=== PATIENT | male | born 1965 | race Caucasian/White ===

== ENCOUNTER 2024-03-13 23:37 | Emergency (ER) | payer OTHER, SELFPAY ==
[2024-03-13 23:45] VITALS: BP 182/110; PULSE 73; RESP 18; TEMP 36.4; O2SAT 97; BMI 33.0
--- NOTE | 2024-03-14 00:23 | ED_ITS ---
HPI - General Adult General Chief complaint: Jaw Injury/Pain Stated complaint: tooth pain Time Seen by Provider: 03/14/24 00:04 Source: patient Mode of arrival: ambulatory Limitations: no limitations History of Present Illness HPI narrative: Very reasonable 59-year-old male comes to the emergency department with persistent dental pain. He had been having intermittent symptoms for the past few weeks after undergoing a root canal procedure last year. Pain is become much more bothersome over the past 2 days. He saw his dentist yesterday. The dentist thinks there is a complication with the previous root canal and started him on amoxicillin and referred him to the oral surgeon. He has a pending appointment Sunday for the oral surgeon. He was instructed that he could call Sunday morning and see about getting on a cancellation list for that day, they were hoping to work him in. He has been using Tylenol 1000 mg every 6 hours and also ibuprofen 800 mg every 6 hours to try to help with his pain. It is causing a mild amount of stomach upset but during the day it is enough to manage. At 9:00 p.m., he had called the oral surgeon office and was given instructions to call about a work-in appointment in the morning and some Tylenol with codeine was called to the nearest 24 hour pharmacy. Unfortunately, he had already maxed out the Tylenol and the dentist did not have great advice for him on when he could take the Tylenol with codeine based on this. He would not be eligible to take any until 2:00 a.m. based on his last Tylenol usage. He is unable to sleep, did not know what else to do. There is no fever. He can open and close his jaw normally. There is no difficulty swallowing. He does not have any drainage from the gum or tooth area. No new injury. No neck pain or stiffness, no breathing difficulty. Did not try any bcbf-isp-enedmyo sleep aids to help augment his pain control tonight. No intoxication. Past medical history benign, only home med is 5 mg of Lexapro. Reports that he has been told he has a penicillin allergy but has tolerated amoxicillin and also what sounds like Augmentin for a sinus infection last year. Nonsmoker. ROS notable for the HEENT symptoms as above only. Otherwise he denies other generalized, HEENT, respiratory or skin changes Related Data Allergies Allergy/AdvReac Type Severity Reaction Status Date / Time No Known Drug Allergies Allergy Verified 03/13/24 23:51 Exam Const: Vital Signs, click to edit/add: Vital Signs - 24 hr 03/13/24 23:45 Temperature 97.6 F Pulse Rate [Left P ulse Oximeter] 73 Respiratory Rate 18 Blood Pressure [Ri ght Upper Arm] 182/110 H Pulse Oximetry 97 Oxygen Delivery Me thod Room Air Documenting provider has reviewed patient's vital signs: yes Common normals: no apparent distress General appearance: cooperative, comfortable and well kempt Other: Very reasonable, polite and cooperative. HENMT: Common normals: normocephalic, head/scalp atraumatic, moist oral mucous membranes, oropharynx normal and dentition normal Head and scalp: normocephalic and atraumatic Eye: Common normals: conjunctivae normal General eye: normal appearance of both eyes Conjunctiva: conjunctiva(e) normal Neck & C-Spine: Common normals: full ROM and no lymphadenopathy Resp: Common normals: normal respiratory effort Effort & inspection: able to speak in complete sentences Psych: Common normals: speech normal Appearance: well kempt Attitude: engaged Activity/motor behavior: appropriate eye contact Speech: normal speech Insight: insight good Judgement: judgment good Skin: Common normals: no rashes or lesions noted General skin exam: no rashes or lesions noted Course Course ED Course: Counseled patient that we are typically not encouraged to treat dental pain and give narcotics. In his case, he has done an excellent job of using all of his ceyc-etx-ufraplr resources, securing a dental appointment as soon as possible, securing subspecialty follow-up and making appropriate calls to the specialist when he had on med needs. I will reward this good behavior with an exception to our policy. He will continue taking the amoxicillin, no change in antibiotic is warranted at this time. He is counseled on continued Tylenol dosage. Encouraged to reduce the ibuprofen though to 800 mg every 8 hours or 600 mg every 6 hours. He is given a very small supply of 10 oxycodone tablets and instructed on proper use of these. Save them for nighttime. He will not be given any additional refills of narcotic medications if he comes back to the emergency department. Alarm symptoms were reviewed. Written instructions were also provided. He was also counseled on use of dceh-bix-ueakqna Benadryl and melatonin to water filterer helper sleep was instructed to go pick these up at the local 24 hour graft restore prior to go going home from the ED. His will drive him. When he gets home, he will take 10 of melatonin, 25 of Benadryl and 1 of the oxycodone tablets. If ineffective at 1:00 a.m., he may take a 2nd oxycodone. If he runs out of oxycodone and or needs something petal cutter for daytime, he is welcome to try the Tylenol with codeine but needs to remember appropriate math on Tylenol dosing which was discussed with him. He verbalizes understanding and agreement Vital Signs Vital signs: Initial Vital Signs Temperature 97.6 F 03/13/24 23:45 Temperature Source Temporal Artery Scan 03/13/24 23:45 Pulse Rate 73 03/13/24 23:45 Pulse Rhythm Regular 03/13/24 23:45 Respiratory Rate 18 03/13/24 23:45 Blood Pressure 182/110 H 03/13/24 23:45 Blood Pressure Mean 134 H 03/13/24 23:45 Blood Pressure Position Sitting 03/13/24 23:45 Pulse Oximetry 97 03/13/24 23:45 Oxygen Delivery Method Room Air 03/13/24 23:45 Vital Signs Temperature 97.6 F 03/13/24 23:45 Pulse Rate 73 03/13/24 23:45 Respiratory Rate 18 03/13/24 23:45 Blood Pressure 182/110 H 03/13/24 23:45 Pulse Oximetry 97 03/13/24 23:45 Oxygen Delivery Method Room Air 03/13/24 23:45 Temperature 97.6 F 03/13/24 23:45 Pulse Rate 73 03/13/24 23:45 Respiratory Rate 18 03/13/24 23:45 Blood Pressure 182/110 H 03/13/24 23:45 Pulse Oximetry 97 03/13/24 23:45 Oxygen Delivery Method Room Air 03/13/24 23:45 Discharge Plan Discharge Clinical Impression: Pain, dental Patient Disposition: Home w/ Parent or Adult Condition: Stable Instructions: Toothache (ED) Additional Instructions: Discussed, there does not seem to be any large infection spread into the bone, c ellulitis or other emergent condition at this time. You are doing an excellent job navigating getting this tooth problem better investigated. Here dentist was right, the total Tylenol dosing may be problematic on your current regimen. See below: For primary pain control, I want you taking 1000 mg of Tylenol every 6 hours. Take this whether your pain is bothersome or not to keep things at [place]. If the pain is still bothersome, take ibuprofen 600 mg every 6 hours. The 100 mg every 6 hours was too much in will cause more stomach issues and can potentially cause kidney problems. Try to take your ibuprofen with a little bit of food, even a couple of crackers makes a huge difference. I have given you a very small supply of oxycodone. This is a much stronger pain medication. As we discussed, we are actually not supposed to give narcotic pain medications for dental pain in the emergency department for a multitude of reasons. But in your case, you have properly initiated contact with your dentist, specialist and are doing a great job of using appropriate ozwg-tjc-beunqji medications. I willing to make an exception in your case but please understand that we cannot give additional refills if you run out of this medication. You may take the oxycodone 1-2 tablets up to every 6 hours. My hope is that you will not need this during the day but can rather save for nighttime. Remember that you should be max and out your Tylenol and ibuprofen before taking the oxycodone. For sleep, you may use 1-2 tablets of 25 mg Benadryl and or melatonin 10 mg. Please go to [email or web address] right after leaving the emergency department and pickle solution maker the melatonin and some Benadryl. Take the melatonin, 1 Benadryl and 1 of the oxycodone as soon as you get home. Give this 1 hour and if your pain has not improved sufficiently to allow you to sleep, you may take a 2nd oxycodone. Unfortunately, if this does not give you adequate pain relief to sleep you will have a restless night. Keep your plan to continue the amoxicillin and call the or facial surgeon at 7:00 a.m. as you are planning. If you do elect to take the Tylenol with codeine that was prescribed by the dental team, you will need to calculate that in your total daily dosing of Tylenol. Max of 4000 mg per 24 hours of Tylenol containing products. The oxycodone does not contain Tylenol. Activity Level: No Restrictions Discharge Diet: Regular Stand Alone Forms: [facility] Info Instructions
--- OUTSIDE RECORDS SUMMARY | 2024-03-14 00:31 | XMS_ITS | Clinical Summary ---
Author Name Unknown Organization [facility] Address [place], [place] [address] Care Team Providers Care Assembler Flexible Leads Name Role Phone Pcp, No Primary Care Provider Unavailabl e Allergies No known active allergies Medications Medication Sig Dispensed Refills Start Date End Date Status sildenafiL, pulm.hypertension, (REVATIO) 20 mg tabletIndications:E rectile dysfunction of organic origin Take 1 tablet by mouth once daily if needed for Other (Specify). 30 tablet. 11 12/30/2020 Active escitalopram oxalate (LEXAPRO) 20 mg tabletIndications:A nxiety Take 0.5-1 Tablets (10-20 mg) by mouth once daily. 90 Tablet 3 12/21/2022 Active doxycycline monohydrate (MONODOX) 100 mg capsuleIndications: Acute non-recurrent maxillary sinusitis Take 1 Capsule (100 mg) by mouth two times daily. 14 Capsule 01/24/2024 Active sodium chloride (OCEAN) 0.65 % nasal solutionIndications :Epistaxis Inhale 1 Crucible into affected nostril(s) every hour if needed for Nasal Dryness or Nasal Congestion. 45 mL 01/24/2024 Active amoxicillin-clavula jaime 875-125 mg tablet (AUGMENTIN)Indicati ons:Acute non-recurrent maxillary sinusitis Take 1 Tablet by mouth two times daily with meals for 7 days. 14 Tablet 02/08/2024 02/15/2024 Active Problems Problem Noted Date Diagnosed Date Severe obstructive sleep apnea 05/28/2023 Overview: Setting: Auto 04/09 Supplied by: Holly PSG done: 04-19-23 HST [place] RDI/ASPEN 48 Lowest O2 Sat: 66% Prediabetes 12/25/2022 Dyslipidemia 12/25/2022 Generalized anxiety disorder 12/29/2020 Male erectile disorder 12/29/2020 Encounters Date Type Department Care Team Description 02/08/2024 3:20 PM CDT Telemedicine [facility] [address] [place] [phone] Ina Hernandez MD Sinus Problem 01/24/2024 6:15 PM CRYPTOGRAPHIC TECHNICIAN Office Visit [facility] [place] [address] [place] [address] Brian Ferro NP Person Under Investigation (PUI) 01/24/2024 Travel from Last 3 Months Immunizations Name Administration Dates Next Due Tdap 08/18/2020 Social History Tobacco Use Types Packs/Day Years Used Date Smoking Tobacco: Former Smokeless Tobacco: Never Alcohol Use Standard Drinks/Week Comments Not Currently 0 (1 standard drink = 0.6 oz pur e alcohol) PHQ-2 Answer Date Recorded PHQ-2 TOTAL SCORE 0 03/09/2022 Social Connections Answer Date Recorded Frequency of Communication with Friends and Fami ly Not on file 01/24/2022 Financial Resource Strain Answer Date R ecorded Difficulty of Paying Living Expenses Not on file 01/24/2022 Difficulty of Paying Living Expenses Not on file 01/24/2022 Sex and Gender Information Value Date Recorded Sex Assigned at Not on file Gender Identity Not on file Sexual Orientation Not on file Obstetrics History Last Filed Vital Signs Vital Sign Reading Time Taken Comments Blood Pressure 152/72 01/24/2024 6:51 PM CRYPTOGRAPHIC TECHNICIAN Pulse 102 01/24/2024 6:36 PM CRYPTOGRAPHIC TECHNICIAN Temperature 38.3 ??C (100.9 ??F) 01/24/2024 6:[address] Respiratory Rate 22 01/24/2024 6:36 PM CRYPTOGRAPHIC TECHNICIAN Oxygen Saturation 94% 01/24/2024 6:36 PM CRYPTOGRAPHIC TECHNICIAN Inhaled Oxygen Concentration - - Weight 105.7 kg (233 lb) 01/24/2024 6:36 PM CRYPTOGRAPHIC TECHNICIAN Height 177 cm (5' 9.69) 12/21/2022 9:33 AM CRYPTOGRAPHIC TECHNICIAN Body Mass Index 33.73 12/21/2022 9:33 AM CRYPTOGRAPHIC TECHNICIAN Plan of Treatment Health Maintenance Due Date Last Done Comments Colonoscopy through age 75 2010 Zoster (shingles) series for age 50+ (1 of 2) 2015 Depression screening for age 12+ 03/09/2023 03/09/2022, 03/09/2022 COVID-19 vaccine series (2022-24 season) 2023 BMI (ht and wt on same day) for age 18+ 12/21/2023 12/21/2022, 03/09/2022, 12/30/2020 Influenza for age 50-64 07/27/2024 Lipids for age 45-75 12/21/2027 12/21/2022, 03/09/2022, 03/09/2022 Tetanus booster 08/18/2030 08/18/2020 Tdap Completed 08/18/2020 HIV for age 15-65 Completed 12/21/2022 Hepatitis C screening for ag e 18-79 Completed 12/21/2022 Pneumococcal series for age 6-64 Aged Out No longer eligible b ased on patient's age to complete this topic Procedures Procedure Name Priority Date/Time Associated Diagnosis Comments LC HIV-1/O/2, 4TH GENERATION Routine 12/21/2022 10:20 AM CRYPTOGRAPHIC TECHNICIAN Screening for HIV (human immunodeficiency virus) LC HCV ANTIBODY RFX TO QUANT PCR Routine 12/21/2022 10:20 AM CRYPTOGRAPHIC TECHNICIAN Need for hepatitis C screening test LC LIPID PANEL AND CHOL/HDL RATIO Routine 12/21/2022 10:20 AM CRYPTOGRAPHIC TECHNICIAN Hypertriglyceridemia from Last 3 Months or Most Recently Relevant to Health Maintenance Results * (ABNORMAL) LC LIPID PANEL AND CHOL/HDL RATIO (12/21/2022 10:20 AM CRYPTOGRAPHIC TECHNICIAN) [facility] Cholesterol, Total 202(H) 100 - 199 mg/dL 12/24/2022 9:07 AM CRYPTOGRAPHIC TECHNICIAN [facility]) Triglycerides 281(H) 0 - 149 mg/dL 12/24/2022 9:07 AM CRYPTOGRAPHIC TECHNICIAN [facility] ([facility]) HDL Cholesterol 37(L) >39 mg/dL 9:07 AM [facility] ([facility]) VLDL Cholesterol Wallace 49(H) 5 - 40 mg/dL 12/24/2022 9:07 AM [facility] LDL Chol Calc (NIH) 116(H) 0 - 99 mg/dL 12/24/2022 9:07 AM [facility] T. Chol/HDL Ratio 5.5(H) 0.0 - 5.0 ratio 12/24/2022 9:07 AM [facility] ([facility]) Comment: ?T. Chol/HDL Ratio ?Men ??Women ?1/2 Avg.Risk ??3.4 ?3.3 ?Avg.Risk ??5.0 ?4.4 ? 2X Avg.Risk ??9.6 ?7.1 ? 3X Avg.Risk 23.4 ?? 11.0 Blood BLOOD SPECIMEN / Unknown Venipuncture / Unknown 12/21/2022 10:20 AM [facility] 12/21/2022 10:20 AM [facility] ([facility]) - 12/24/2022 9:07 AM CRYPTOGRAPHIC TECHNICIAN Performed at: ??01 - [facility] [place] [address] ??[id number] Wringer Machine Operator: Shahzad Pickett MD, Phone: ??[phone] Milagros Amin MD SEND OUTS Performing Organization Address [facility] Co de Phone Number [facility] [address] [place] [address], * HCV ANTIBODY RFX TO QUANT PCR (12/21/2022 10:20 AM CRYPTOGRAPHIC TECHNICIAN) HCV Ab <0.1 0.0 - 0.9 s/co ratio 12/23/2022 5:33 PM CRYPTOGRAPHIC TECHNICIAN [facility]) Blood BLOOD SPECIMEN / Unknown Venipuncture / Unknown 12/21/2022 10:20 AM CRYPTOGRAPHIC TECHNICIAN 12/21/2022 10:[address] [facility] ([facility]) - 12/23/2022 5:33 PM CRYPTOGRAPHIC TECHNICIAN Performed at: ??01 - [address] ??[id number] Wringer Machine Operator: Shahzad Pickett MD, Phone: ??[phone] Milagros Amin MD LABORATORY Performing Organization Address [facility] Co de Phone Number [facility] ([facility]) [address] [place] [address], * LC HIV-1/O/2, 4TH GENERATION (12/21/2022 10:20 AM CRYPTOGRAPHIC TECHNICIAN) HIV Scr 4th Gen Non Reactive Non Reactive 12/23/2022 5:[address] [facility] Comment: HIV Negative HIV-1/HIV-2 antibodies and HIV-1 p24 antigen were NOT detected. There is no laboratory evidence of HIV infection. Blood BLOOD SPECIMEN / Unknown Venipuncture / Unknown 12/21/2022 10:20 AM CRYPTOGRAPHIC TECHNICIAN 12/21/2022 10:20 AM CRYPTOGRAPHIC TECHNICIAN Narrative [facility] - 12/23/2022 5:33 PM CRYPTOGRAPHIC TECHNICIAN Performed at: ??01 - [facility] [address] [place], [place] ??[id number] Wringer Machine Operator: Shahzad Pickett MD, Phone: ??[phone] Milagros Amin MD LABORATORY [facility] ([facility]) [facility] [address] from Last 3 Months or Most Recently Relevant to Health Maintenance Care Teams Assembler Flexible Leads Relationship Specialty Start Date End Date Pcp, No . PCP - General 12/23/20
--- OUTSIDE RECORDS SUMMARY | 2024-03-14 00:31 | XMS_ITS | Clinical Summary ---
Author Name Unknown Organization [facility] Address [address] [facility] [place] [address] Care Team Providers Care Credit Adjuster Name Role Phone Teja Cruz MD Primary Care Provider + [phone] Jordi Rudolph OD Unavailable [phone] Allergies No known active allergies Social History Tobacco Use Types Packs/Day Years Used Date Smoking Tobacco: Never Assessed Adolescent Education Answer Date Record ed Getting School Help Needed Not on file 09/01 Sex and Gender Information Value Date Recorded Sex Assigned at Not on file Gender Identity Not on file Sexual Orientation Not on file Last Filed Vital Signs Vital Sign Reading Time Taken Comments Blood Pressure 164/115 06/06/2021 12:05 AM CDT Pulse 76 06/06/2021 12:05 AM CDT Temperature 36.9 ??C (98.5 ??F) 06/06/2021 1 2:05 AM CDT Respiratory Rate 16 06/06/2021 12:0 5 AM CDT Oxygen Saturation 99% 06/06/2021 12: 05 AM CDT Inhaled Oxygen Concentration - - Weight 107.1 kg (236 lb 1.8 oz) 021 12:05 AM CDT Height 172.7 cm (5' 8) 06/06/2021 12:0 5 AM CDT Body Mass Index 35.9 06/06/2021 12:05 AM CDT Plan of Treatment Health Maintenance Due Date Last Done Comments ADVANCE CARE PLANNING 1965 ANNUAL REVIEW OF HM ORDERS 1965 CT COLONOGRAPHY 1965 FIT 1965 FLEX SIG 1965 GLUCOSE 1965 sDNA (Cologuard) 1965 COLONOSCOPY 1975 COLORECTAL CANCER SCREENING 1975 HIV SCREENING 01/29/1980 HEPATITIS C SCREENING 1983 HEPATITIS B IMMUNIZATION (1 of 3 - 19+ 3-dose series) 01/29/1984 LIPID 2005 ZOSTER IMMUNIZATION (1 of 2) 2015 YEARLY PREVENTIVE VISIT 03/09/2023 03/09/20 22, 12/30/2020 COVID-19 Vaccine (1 - 2022-2 4 season) 2023 INFLUENZA VACCINE (#1) 2023 PHQ-2 (once per calendar year) 2023 DTAP/TDAP/TD IMMUNIZATION (2 - Td or Tdap) 08/18/2030 08/18/2020 HPV IMMUNIZATION Aged Out No longer e ligible based on patient's age to complete this topic IPV IMMUNIZATION Aged Out No longer e ligible based on patient's age to complete this topic MENINGITIS IMMUNIZATION Aged Out No l onger eligible based on patient's age to complete this topic Pneumococcal Vaccine: Pediatrics (0 to 5 Years) and At-Risk Patients (6 to 64 Years) Aged Out No longer eligible b ased on patient's age to complete this topic RSV MONOCLONAL ANTIBODY Aged Out No l onger eligible based on patient's age to complete this topic Care Teams Credit Adjuster Relationship Specialty Start Date End Date Teja Cruz MD [facility] [address] [place] [address] PCP - General Family Medicine 06/06/21 Jordi Rudolph OD [address] [place] [address] [id number] Optometry 08/07/22
--- OUTSIDE RECORDS SUMMARY | 2024-03-14 00:31 | XMS_ITS | Referral Summary ---
Author Name Unknown Organization [place] Address [address] [facility] [place] [address] Care Team Providers Care Clam Grower Name Role Phone Teja Cruz MD Primary Care Provider + [phone] Jordi Rudolph OD Unavailable [phone] Allergies No known active allergies Social History [...] 06/06/2021 12:05 AM CDT Plan of Treatment Not on file Care Teams Clam Grower Relationship Specialty Start Date End Date Teja Cruz MD [facility] [address] [place] [phone] PCP - General Family Medicine 06/06/21 Jordi Rudolph, OD [address] [place] [address] Optometry 08/07/22
--- OUTSIDE RECORDS SUMMARY | 2024-03-14 00:32 | XMS_ITS | Clinical Summary ---
Author Name Unknown Organization [facility] Address [address] [place] [address] Care Team Providers Care Delivery Crew Worker Name Role Phone Melchor Douglas DO Primary Care Provider [phone] Source Comments You are receiving this document as you are listed as the primary care provider,follow-up provider, or the patient has been referred to you for consultation.This is in compliance with the Medicare and[employer] EHR Incentive Program,which states Providers who transition their patient to another setting of careor provider of care or refers their patient to another provider of care shouldprovide summary care record for each transition of care or referral. [facility] Allergies No known active allergies Medications Medication Sig Dispensed Refills Start Date End Date Status escitalopram oxalate (LEXAPRO) 20 MG tablet Take 0.5 Tablets (10 mg) by mouth daily. Active Active Problems Problem Noted Date Diagnosed Date Obesity 12/11/2023 Hypersomnia with sleep apnea 12/11/2023 Severe obstructive sleep apnea 05/28/2023 Overview: Setting: Auto 04/09 Supplied by: Holly PSG done: 04-19-23 HST [place] RDI/ASPEN 48 Lowest O2 Sat: 66% Social History Tobacco Use Types Packs/Day Years Used Date Smoking Tobacco: Former Cigarettes Smokeless Tobacco: Former Tobacco Cessation:Counseling Given: Not Answered Comments:Quit around 2002 Sex and Gender Information Value Date Recorded Sex Assigned at Not on file Gender Identity Not on file Sexual Orientation Not on file Last Filed Vital Signs Vital Sign Reading Time Taken Comments Blood Pressure 150/92 12/11/2023 4:07 PM TECHNICAL APPLICATIONS SCIENTIST Pulse 78 12/11/2023 3:32 PM TECHNICAL APPLICATIONS SCIENTIST Temperature - - Respiratory Rate - - Oxygen Saturation 96% 12/11/2023 3:32 PM TECHNICAL APPLICATIONS SCIENTIST Inhaled Oxygen Concentration - - Weight 109.8 kg (242 lb) 12/11/2023 3:32 PM TECHNICAL APPLICATIONS SCIENTIST Height 172.7 cm (5' 8) 12/11/2023 3:32 PM TECHNICAL APPLICATIONS SCIENTIST Body Mass Index 36.8 12/11/2023 3:32 PM TECHNICAL APPLICATIONS SCIENTIST Plan of Treatment Health Maintenance Due Date Last Done Comments Colon Cancer Screening Plan Due 1965 Hep C Screening (Preventive Services) 1965 PSA Screening Discussion 1965 HIV Screening (Preventive Services) 1981 Adult Preventive Visit 1983 HepB (1) 01/29/1984 Cholesterol 01/29/2000 Zoster/Shingles (1 of 2) 2015 COVID-19 Vaccine ( - 2022-2 4 season) 2023 Influenza (#1) 2023 Diabetes Screening- (based o n age and BMI) 12/21/2025 12/21/2022 DTaP/Tdap/Td (2 - Tdap) 08/18/2030 08/18/2020 HepA Aged Out No longer eligi ble based on patient's age to complete this topic Hib Aged Out No longer eligi ble based on patient's age to complete this topic IPV (Polio) Aged Out No longer eligi ble based on patient's age to complete this topic MCV4 Aged Out No longer eligi ble based on patient's age to complete this topic Pneumococcal Aged Out No longer eligi ble based on patient's age to complete this topic Procedures Procedure Name Priority Date/Time Associated Diagnosis Comments HGB A1C (EXTERNAL RESULT) Routine 12/21/2022 10:20 AM TECHNICAL APPLICATIONS SCIENTIST from Last 3 Months or Most Recently Relevant to Health Maintenance Care Teams Delivery Crew Worker Relationship Specialty [place] [address] [place] [address] PCP - General Family Practice 12/11/23
--- OUTSIDE RECORDS SUMMARY | 2024-03-14 00:32 | XMS_ITS | Encounter Summary ---
Author Name Unknown Organization [facility] Address [address] [place] [address] Care Team Providers Care Four Slide Machine Setter Name Role Phone Melchor Douglas DO Primary Care Provider [phone] Reason for Referral * Procedure/Equipment (Routine) - New Request Specialty Diagnoses / Procedures Referred By Contac t Referred To Contact Diagnoses YONY (obstructive sleep apnea) Procedures Sleep Supply Renew Saturnino Brunson APRN POLISHER BALANCE SCREWHEAD [address] [place] [address] Referral ID Status Reason Start Date Expiration Date V isits Requested Visits Authorized [id number] New Request 12/11/2023 06/08/2024 1 1 ESS AREA SUPERVISOR Reason for Visit * Reason Comments Follow-up Encounter Details Date Type Department Care Team (Late st Contact Info) Description 12/11/2023 3:30 PM PROCESS AREA SUPERVISOR Office Visit [facility] [place] [address] Saturnino Brunson APRN, POLISHER BALANCE SCREWHEAD [address] [facility] [address] [place] [address] YONY (obstructive sleep apnea) (Primary Dx); Obesity, unspecified classification, unspecified obesity type, unspecified whether serious comorbidity present (HRC); Hypersomnia with sleep apnea Social History Tobacco Use Types Packs/Day Years Used Date Smoking Tobacco: Former Cigarettes Smokeless Tobacco: Former Tobacco Cessation:Counseling Given: Not Answered Comments:Quit around 2002 Sex and Gender Information Value Date Recorded Sex Assigned at Not on file Gender Identity Not on file Sexual Orientation Not on file documented as of this encounter Last Filed Vital Signs Vital Sign Reading Time Taken Comments Blood Pressure 150/92 12/11/2023 4:07 PM PROCESS AREA SUPERVISOR Pulse 78 12/11/2023 3:32 PM PROCESS AREA SUPERVISOR Temperature - - Respiratory Rate - - Oxygen Saturation 96% 12/11/2023 3:32 PM PROCESS AREA SUPERVISOR Inhaled Oxygen Concentration - - Weight 109.8 kg (242 lb) 12/11/2023 3:32 PM PROCESS AREA SUPERVISOR Height 172.7 cm (5' 8) 12/11/2023 3:32 PM PROCESS AREA SUPERVISOR Body Mass Index 36.8 12/11/2023 3:32 PM PROCESS AREA SUPERVISOR documented in this encounter Progress Notes * Saturnino Brunson, NAWAF, POLISHER BALANCE SCREWHEAD - 12/11/2023 3:30 PM CST PULMONARY/SLEEP CLINIC FOLLOW-UP CHIEF COMPLAINT: Obstructive Sleep Apnea HPI: The patient is a 58 y.o. male with a history of severe obstructive sleep apnea diagnosed in 2022. He is currently treated with APAP and returns for 3 month follow-up. He states that he has been doing better with APAP compliance. He is using a full face mask through [employer] ( This is his 3rd style mask). His nose is still tickling, but getting better. He sleeps on his back and sides. No insomnia. Mild RLS. No PLMD. He is up to void 0-2 times night. He had heart palpitations and quit drinking caffeine in the past few weeks, which has improved his palpitations. He is rested in the am. He isfeeling sleepy during the day. He takes a planned nap, some days. He averages 7-7.5 hours of sleep at night. 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 No am headaches. No MIA. He is no longer biting his tongue, since using the machine. He had sleepy driving in the past, with longer distances. He has no other sleep complaints at this time. INTERVAL MEDICAL HISTORY: no changes PHYSICAL EXAM: BP (!) 142/81 (BP Location: Right Arm, BP Cuff Size: Large) Pulse 78 Ht 5' 8 (1.727 m) Wt 242 lb (109.8 kg) SpO2 96% BMI 36.80 kg/m?? GEN: alert and oriented x3 ESS: 15 CPAP Data: S10 Time frame: 30 days Compliance 87 %, 7.5 hours CPAP/APAP settings: 5-15 cm H20 Average 95% pressure: 13 cmH2O, median pressure 10 cm H20 Leak: 19 LPM Average AHI 5 events/hr IMPRESSION AND PLAN: Severe Obstructive Sleep Apnea. Download and nursing home cpap education reviewed. Pt is doing well with apap. No changes needed to present settings. Follow up in 12-15 months with DL or sooner as needed. 2. Hypersomnia. We discussed the possibility of a wake promoting agent, but he deferred at this time. He will call if he would like to trial this in the future. 3. Hypoxia to 66% the night of the HST. A noc ox was ordered on APAP and room air. 4. Obesity. We discussed the bidirectional relationship between YONY and obesity. All of the patient's questions were answered. He states understanding and agreement with my assessment and plan as above. I spent a total of 30 minutes on the day of the visit reviewing the chart, gathering history, evaluating the patient, and preparing the plan of care. ESS AREA SUPERVISOR documented in this encounter Plan of Treatment Not on file documented as of this encounter Visit Diagnoses Diagnosis YONY (obstructive sleep apnea)- Primary Obstructive sleep apnea (adult) (pediatric) Obesity, unspecified classification, unspecified obesity type, unspecified whether serious comorbidity present (HRC) Hypersomnia with sleep apnea Hypersomnia with sleep apnea, unspecified documented in this encounter Care Teams Four Slide Machine Setter Relationship Specialty [place] [address] [place] [address] PCP - General Family Practice 12/11/23 documented as of this encounter
--- OUTSIDE RECORDS SUMMARY | 2024-03-14 00:53 | XMS_ITS | Clinical Summary ---
Author Name Unknown Organization [facility] Address [address] [facility] [place] [address] Care Team Providers Care Plant Operations Worker Name Role Phone Teja Cruz MD Primary Care Provider [phone] Jordi Rudolph OD Unavailable [phone] Allergies No known active allergies Social History [...] age to complete this topic Care Teams Plant Operations Worker Relationship Specialty Start Date End Date Teja Cruz MD [facility] [address] [place] [address] PCP - General Family Medicine 06/06/21 Jordi Rudolph OD [address] [place] [address] [id number] Optometry 08/07/22
--- OUTSIDE RECORDS SUMMARY | 2024-03-14 00:53 | XMS_ITS | Clinical Summary ---
Author Name Unknown Organization [facility] [employer] Address [place], [place] [address] Care Team Providers Care Configuration Developer Name Role Phone Pcp, No Primary Care [...] 0.65 % nasal solutionIndications :Epistaxis Inhale 1 [place] into affected nostril(s) every hour if needed [...] Supplied by: Holly PSG done: 04-19-23 HST [place] RDI/ASPEN 48 Lowest O2 Sat: 66% Prediabetes 12/25/2022 Dyslipidemia 12/25/2022 Generalized anxiety disorder 12/29/2020 Male erectile disorder 12/29/2020 Encounters Date Type Department Care Team Description 02/08/2024 3:20 PM CDT Telemedicine [facility] [address] [place] [phone] Ina Hernandez MD Sinus Problem 01/24/2024 6:15 PM BLOCKER AUTOMATIC Office Visit [facility] [address] [place] [address] Brian Ferro NP Person Under [...] Comments Blood Pressure 152/72 01/24/2024 6:51 PM BLOCKER AUTOMATIC Pulse 102 01/24/2024 6:36 PM BLOCKER AUTOMATIC Temperature 38.3 ??C (100.9 ??F) 01/24/2024 6:[address] Respiratory Rate 22 01/24/2024 6:36 PM BLOCKER AUTOMATIC Oxygen Saturation 94% 01/24/2024 6:36 PM BLOCKER AUTOMATIC Inhaled Oxygen Concentration - - Weight 105.7 kg (233 lb) 01/24/2024 6:36 PM BLOCKER AUTOMATIC Height 177 cm (5' 9.69) 12/21/2022 9:33 AM BLOCKER AUTOMATIC Body Mass Index 33.73 12/21/2022 9:33 AM BLOCKER AUTOMATIC Plan of Treatment Health Maintenance Due Date [...] HIV-1/O/2, 4TH GENERATION Routine 12/21/2022 10:20 AM BLOCKER AUTOMATIC Screening for HIV (human immunodeficiency virus) LC HCV ANTIBODY RFX TO QUANT PCR Routine 12/21/2022 10:20 AM BLOCKER AUTOMATIC Need for hepatitis C screening test LC LIPID PANEL AND CHOL/HDL RATIO Routine 12/21/2022 10:20 AM BLOCKER AUTOMATIC Hypertriglyceridemia from Last 3 Months or Most Recently Relevant to Health Maintenance Results * (ABNORMAL) LC LIPID PANEL AND CHOL/HDL RATIO (12/21/2022 10:20 AM BLOCKER AUTOMATIC) [facility] Cholesterol, Total 202(H) 100 - 199 mg/dL 12/24/2022 9:07 AM BLOCKER AUTOMATIC [facility] ([facility]) Triglycerides 281(H) 0 - 149 mg/dL 12/24/2022 9:07 AM BLOCKER AUTOMATIC [facility] ([facility]) HDL Cholesterol 37(L) >39 mg/dL 9:07 AM [facility] ([facility]) VLDL Cholesterol Wallace 49(H) 5 - 40 mg/dL 12/24/2022 9:07 AM [facility] ([facility]) LDL Chol Calc (NIH) 116(H) 0 - 99 mg/dL 12/24/2022 9:07 AM [facility] ([facility]) T. Chol/HDL Ratio 5.5(H) 0.0 - 5.0 ratio 12/24/2022 9:07 AM [facility] ([facility]) Comment: ?T. Chol/HDL Ratio ?Men ??Women ?1/2 Avg.Risk ??3.4 ?3.3 ?Avg.Risk ??5.0 ?4.4 ? 2X Avg.Risk ??9.6 ?7.1 ? 3X Avg.Risk 23.4 ?? 11.0 Blood BLOOD SPECIMEN / Unknown Venipuncture / Unknown 12/21/2022 10:[address] [facility] 12/21/2022 10:20 AM [facility] ([facility]) - 12/24/2022 9:07 AM BLOCKER AUTOMATIC Performed at: ??01 - [facility] [place] [address] ??[id number] Senior Storage Engineer: Shahzad Pickett MD, Phone: ??[phone] Milagros Amin MD SEND OUTS Performing Organization Address [facility] Co de Phone Number [facility] ([facility]) [address] [place] [address], * HCV ANTIBODY RFX TO QUANT PCR (12/21/2022 10:20 AM BLOCKER AUTOMATIC) HCV Ab <0.1 0.0 - 0.9 s/co ratio 12/23/2022 5:33 PM BLOCKER AUTOMATIC [facility]IC TESTING ([facility]) Blood BLOOD SPECIMEN / Unknown Venipuncture / Unknown 12/21/2022 10:20 AM BLOCKER AUTOMATIC 12/21/2022 10:20 AM BLOCKER AUTOMATIC [facility] ESOTERIC TESTING ([facility]) - 12/23/2022 5:33 PM BLOCKER AUTOMATIC Performed at: ??01 - [address] ??[id number] Senior Storage Engineer: Shahzad Pickett MD, Phone: ??[phone] Milagros Amin MD LABORATORY Performing Organization Address [facility] Co de Phone Number [facility]OTERIC TESTING (C[facility]) [address] [place] [address], * LC HIV-1/O/2, 4TH GENERATION (12/21/2022 10:20 AM BLOCKER AUTOMATIC) HIV Scr 4th Gen Non Reactive Non Reactive 12/23/2022 5:33 PM BLOCKER AUTOMATIC [facility] ([facility]) Comment: HIV Negative HIV-1/HIV-2 antibodies and HIV-1 p24 antigen were NOT detected. There is no laboratory evidence of HIV infection. Blood BLOOD SPECIMEN / Unknown Venipuncture / Unknown 12/21/2022 10:20 AM BLOCKER AUTOMATIC 12/21/2022 10:20 AM BLOCKER AUTOMATIC Narrative [facility] - 12/23/2022 5:33 PM BLOCKER AUTOMATIC Performed at: ??01 - [facility] [id number] [place], [place] ??[id number] Senior Storage Engineer: Shahzad Pickett MD, Phone: ??[phone] Milagros Amin MD LABORATORY [facility] ([facility]) [facility] from Last 3 Months or Most Recently Relevant to Health Maintenance Care Teams Configuration Developer Relationship Specialty Start Date End Date Pcp, No . PCP - General 12/23/20
--- OUTSIDE RECORDS SUMMARY | 2024-03-14 00:53 | XMS_ITS | Clinical Summary ---
Author Name Unknown Organization [facility] Address [address] [place] [address] Care Team Providers Care Tubular Riveter Name Role Phone Melchor Douglas DO Primary Care Provider [phone] Source Comments You are receiving this document as you are listed as the primary care provider,follow-up provider, or the patient has been referred to you for consultation.This is in compliance with the Medicare and[facility] EHR Incentive Program,which states Providers who transition [...] Supplied by: Holly PSG done: 04-19-23 HST [place] RDI/ASPEN 48 Lowest O2 Sat: 66% Social [...] Comments Blood Pressure 150/92 12/11/2023 4:07 PM LIPSTICK MOLDER Pulse 78 12/11/2023 3:32 PM LIPSTICK MOLDER Temperature - - Respiratory Rate - - Oxygen Saturation 96% 12/11/2023 3:32 PM LIPSTICK MOLDER Inhaled Oxygen Concentration - - Weight 109.8 kg (242 lb) 12/11/2023 3:32 PM LIPSTICK MOLDER Height 172.7 cm (5' 8) 12/11/2023 3:32 PM LIPSTICK MOLDER Body Mass Index 36.8 12/11/2023 3:32 PM LIPSTICK MOLDER Plan of Treatment Health Maintenance Due Date [...] A1C (EXTERNAL RESULT) Routine 12/21/2022 10:20 AM LIPSTICK MOLDER from Last 3 Months or Most Recently Relevant to Health Maintenance Care Teams Tubular Riveter Relationship Specialty [place] [address] [place] [address] PCP - General Family Practice 12/11/23
--- OUTSIDE RECORDS SUMMARY | 2024-03-14 00:53 | XMS_ITS | Encounter Summary ---
Author Name Unknown Organization [facility] Address [address] [place] [address] Care Team Providers Care Latent Print Examiner Name Role Phone Melchor Douglas DO Primary Care Provider [phone] Reason for Referral * Procedure/Equipment (Routine) - New Request Specialty Diagnoses / Procedures Referred By Contac t Referred To Contact Diagnoses YONY (obstructive sleep apnea) Procedures Sleep Supply Renew Saturnino Brunson APRN COMPENSATION AND HRIS ANALYST [address] [place] [address] Referral ID Status Reason Start Date Expiration Date V isits Requested Visits Authorized [id number] New Request 12/11/2023 06/08/2024 1 1 D WELFARE MANAGER Reason for Visit * Reason Comments Follow-up Encounter Details Date Type Department Care Team (Late st Contact Info) Description 12/11/2023 3:30 PM CHILD WELFARE MANAGER Office Visit [facility] [facility] [address] Saturnino Brunson APRN, COMPENSATION AND HRIS ANALYST [address] [facility] [address] [place] [address] YONY (obstructive sleep apnea) (Primary [...] Comments Blood Pressure 150/92 12/11/2023 4:07 PM CHILD WELFARE MANAGER Pulse 78 12/11/2023 3:32 PM CHILD WELFARE MANAGER Temperature - - Respiratory Rate - - Oxygen Saturation 96% 12/11/2023 3:32 PM CHILD WELFARE MANAGER Inhaled Oxygen Concentration - - Weight 109.8 kg (242 lb) 12/11/2023 3:32 PM CHILD WELFARE MANAGER Height 172.7 cm (5' 8) 12/11/2023 3:32 PM CHILD WELFARE MANAGER Body Mass Index 36.8 12/11/2023 3:32 PM CHILD WELFARE MANAGER documented in this encounter Progress Notes * Saturnino Brunson, NAWAF, COMPENSATION AND HRIS ANALYST - 12/11/2023 3:30 PM CST PULMONARY/SLEEP CLINIC [...] PLAN: Severe Obstructive Sleep Apnea. Download and detention cpap education reviewed. Pt is doing well [...] patient, and preparing the plan of care. D WELFARE MANAGER documented in this encounter Plan of Treatment Not on file documented as of this encounter Visit Diagnoses Diagnosis YONY (obstructive sleep apnea)- Primary Obstructive sleep apnea (adult) (pediatric) Obesity, unspecified classification, unspecified obesity type, unspecified whether serious comorbidity present (HRC) Hypersomnia with sleep apnea Hypersomnia with sleep apnea, unspecified documented in this encounter Care Teams Latent Print Examiner Relationship Specialty [place] [address] [place] [address] PCP - General Family Practice 12/11/23 documented as of this encounter
--- OUTSIDE RECORDS SUMMARY | 2024-03-14 00:53 | XMS_ITS | Referral Summary ---
Author Name Unknown Organization [facility] Address [address] [facility] [address] Care Team Providers Care Java J2Ee Software Engineer Name Role Phone Teja Cruz MD Primary Care Provider [phone] Jordi Rudolph OD Unavailable [phone] Allergies No known active allergies Social History [...] of Treatment Not on file Care Teams Java J2Ee Software Engineer Relationship Specialty Start Date End Date Teja Cruz MD [facility] [address] [place] [phone] PCP - General Family Medicine 06/06/21 Jordi Rudolph, OD [address] [place] [address] Optometry 08/07/22
== END 2024-03-14 00:49 | disposition home or self-care (01) ==
PROVIDERS: Emergency Provider Family Medicine
DX: K08.89 Other specified disorders of teeth and supporting structures (principal)
CPT/HCPCS: 99282; 99283

== ENCOUNTER 2024-06-09 17:19 | Emergency (ER) | payer OTHER, SELFPAY ==
[2024-06-09 17:29] VITALS: BP 124/78; PULSE 96; RESP 18; TEMP 36.1; O2SAT 99; BMI 32.3
--- NOTE | 2024-06-09 17:35 | ED.GENADULT ---
HPI - General Adult General Date Seen: 06/09/24 Chief complaint: Laceration/Wound Stated complaint: laceration - table saw Time Seen by Provider: 06/09/24 17:35 History of Present Illness HPI narrative: This is a 59 generally healthy male who presents to the ER today with his for evaluation of a right hand (dominant hand) index finger (2nd digit) table saw injury. He accidentally hit his finger against the table saw this afternoon just prior to coming in. He says he does not really know why he did it. It was just a mistake. He is up-to-date on his tetanus, less than 5 years ago. He does not take any anticoagulants. No diabetes or chemo or immunosuppression He suffered a laceration to the flexor portion of the distal and of his index finger. He did have dark red venous oozing which was controlled by direct pressure any came in with a dressing on. Related Data Home Medications ?Medication ?Instructions ?Recorded ?Confirmed No Known Home Medications 06/09/24 06/09/24 Allergies Allergy/AdvReac Type Severity Reaction Status Date / Time No Known Drug Allergies Allergy Verified 03/13/24 23:51 Exam Narrative: Exam Narrative: Constitutional: Appears well-developed and well-nourished. Alert and cooperative but he does not like his blood and feels somewhat queasy.. Non-toxic appearing. HENT: Head: Atraumatic. No signs of injury. Nose: No nasal discharge. Mouth/Throat: Mucous membranes are moist. Pharynx is normal. Tonsils symmetric. Uvula midline. Airway patent. Eyes: Conjunctivae normal and EOM are normal. Pupils are equal, round, and reactive to light. Right eye exhibits no discharge. Left eye exhibits no discharge. No icterus. Neck: Normal range of motion. Neck supple. No adenopathy. No stridor. Cardiovascular: Normal rate and regular rhythm. No murmur heard. No murmurs, rubs, or gallops. Brisk capillary refill symmetric radial artery pulses. When I removed the dressing he has very small amount of venous oozing from the wound on the right index finger. No arterial bleeding. Good distal cap refill Pulmonary/Chest: Effort normal. No stridor. No respiratory distress. No wheezes.No rhonchi. No rales. No retractions. Musculoskeletal: On injured and normal except for his right hand, 2nd digit- Normal range of motion. No edema. No tenderness. No deformity. Right hand 2nd digit. He does have a complex wound on the volar surface. There is roughly a 2 cm linear laceration associated with a 1 x 1 cm area where the skin has been destroyed. He does have a laceration that runs perpendicular to the axis of the finger on the volar surface affecting the D IP joint. He also has a soft tissue wound of the finger pad. Most of the skin and some of the tissue of the finger pad is gone but there is at least some soft tissue covering distal flange E bone. No visible exposed bone. There is no dorsal laceration or finger nail bed injury. The patient has absent D IP joint flexion but intact D IP joint extension. He has absent digital nerve function on the ulnar border the skin of his hand distal to the D IP joint. Proximally he has intact digital nerve sensory function ulnarly and radially. Intact flexion and extension of the PIP and MCP joints. Neurological: Alert. Normal strength. No cranial nerve deficit or sensory deficit. Coordination normal. GCS eye subscore is 4. GCS verbal subscore is 5. GCS motor subscore is 6. Skin: Skin is warm. No rash noted. Const: Vital Signs, click to edit/add: Vital Signs - 24 hr 06/09/24 17:29 06/09/24 19:16 Temperature 97.0 F L Pulse Rate [Right Pulse Oximeter] 96 Respiratory Rate 18 16 Blood Pressure [Ri ght Upper Arm] 124/78 Pulse Oximetry 99 Oxygen Delivery Me thod Room Air Course Vital Signs Vital signs: Initial Vital Signs Temperature 97.0 F L 06/09/24 17:29 Temperature Source Temporal Artery Scan 06/09/24 17:29 Pulse Rate 96 06/09/24 17:29 Respiratory Rate 18 06/09/24 17:29 Blood Pressure 124/78 06/09/24 17:29 Blood Pressure Mean 93 06/09/24 17:29 Blood Pressure Position Sitting 06/09/24 17:29 Pulse Oximetry 99 06/09/24 17:29 Oxygen Delivery Method Room Air 06/09/24 17:29 Vital Signs Temperature 97.0 F L 06/09/24 17:29 Pulse Rate 96 06/09/24 17:29 Respiratory Rate 18 06/09/24 17:29 Blood Pressure 124/78 06/09/24 17:29 Pulse Oximetry 99 06/09/24 17:29 Oxygen Delivery Method Room Air 06/09/24 17:29 Temperature 97.0 F L 06/09/24 17:29 Pulse Rate 96 06/09/24 17:29 Respiratory Rate 16 06/09/24 19:16 Blood Pressure 124/78 06/09/24 17:29 Pulse Oximetry 99 06/09/24 17:29 Oxygen Delivery Method Room Air 06/09/24 17:29 Medical Decision Making MDM Narrative Medical decision making narrative: Findings and exam are consistent with an complex saw blade induced right index finger laceration. This is a complex wound because it involves an injury to the flexor tendon, a small chip fracture off of the distal phalanx, open D IP joint, and digital nerve injury. Discussed with our orthopedic on-call. They recommend that we close the closable portions of the wound and have the patient follow-up with orthopedic hands (in the [facility]). Portions of the wound were fairly linear and I was able to close them,as noted above. There is also a section in the middle of the wound where more tissue is been removed by the saw blade and there was no suturable portion. Fortunately there is soft tissue that is covering the distal phalanx. The patient is placed into a antibiotic ointment dressing and not hear dressing and into a splint to avoid extension of his PIP joint. There is no evidence to suggest tendon or arterial injury. Good distal cap refill. He does have a digital nerve injury. The patient is to follow up for s with ortho hand within 1-3 days. He will keep his dressing in place until he can follow up with Ortho Hand (hopefully tomorrow) if not able to see Ortho Hand by Sunday he is to come back to the ER for dressing removal and change and wound re-evaluation to check for possible infection. Indications to seek urgent reevaluation and signs of infection (including but not limited to increasing pain, redness, swelling, fevers, and drainage) were reviewed. Tetanus is up-to-date. Given the complexity of the wound we will start prophylactic antibiotics. First dose given here in the ER. An understanding of the discharge instructions and need for follow up were verbally confirmed. Imaging Data XR finger: My impression: Small bony abnormality at the PIP joint suspicious for probable saw blade induced chip fracture Radiologist's impression: Impression: Deformity of the palmar aspect of the 2nd middle phalanx may be related to traumatic injury from laceration. The fracture fragment is not identified in the soft tissues. Discharge Plan Discharge Clinical Impression: Laceration of finger, Flexor tendon laceration, finger, open wound, Phalanx, distal fracture of finger Patient Disposition: Home, Self-Care Condition: Stable Instructions: Finger Laceration (ED), Tendon Laceration (ED) Additional Instructions: As we discussed, you have a complex wound of your finger. You have cut your finger deeply and down into the joint between the middle finger bone and the distal finger bone. You have cut the flexor tendon of your finger You have injured 1 side of the nerve they give sensation to your finger You should follow-up with a hand orthopedic surgeon within the next 1-2 days. To arrange a follow-up appointment with hand surgeons at [facility] in [place], call [phone] tomorow between 8-9 AM. (if you would rather, you could also call a different orthopedic clinic such as [facility], to follow up with the hand surgeon) Please recheck with hand surgeon within the next 1-3 days. If you are not able to get in with a hand surgeon, come back to the ER for a wound check. Until you see the hand surgeon, keep your dressing and antibiotic ointment in place. Wear the splint to protect your injured joint. You can leave the dressing in place until you see the hand surgeon in 1-3 days. If you are not able to see the hand surgeon come back to the ER for a wound check and dressing change. Use the antibiotics (cephalexin ) to prevent infections per For pain you can use acetaminophen or ibuprofen as needed. Use the prescription pain killer, hydrocodone, if needed for breakthrough pain. Use caution with hydrocodone because it causes dizziness, drowsiness, constipation, and can be addictive. Prescriptions: No Action No Known Home Medications Follow Up/Referrals: Provider,Not a Local [Primary Care Provider] - Stand Alone Forms: [facility] Info Instructions Procedures Laceration RIght index finger laceration: Pre procedure diagnosis: Right index finger laceration/table saw injury Verification/time out: correct patient, correct site and correct procedure Site: hand (Right index finger) Side (If applicable): right Size (cm): 2.5 Description: irregular (There is a complex laceration with macerated edges and some destroyed tissue on the finger pad. I approximated the linear portion a laceration you seeing a total of 6 5-0 Ethilon sutures. Portions of laceration have been destroyed by the saw blade and cannot be repaired primarily.) Depth: involves tendon Local Anesthetic: bupivacaine 0.25% Amount of anesthesia used (mL): 5 Pre-repair: wound explored and irrigated extensively (The patient does have an injury to the flexor tendon at the D IP joint. They wound does extend into the D IP joint. X-rays confirm a small fracture from the proximal and of the distal phalanx. Digital nerve injury is present) Size (cm): 5-0 Number of sutures: 6 Technique: simple, interrupted
--- NOTE | 2024-06-09 18:02 | CRLHL7_ITS ---
For Patients: As a result of the Cures Act, medical imaging exams and procedure reports are released immediately into your electronic medical record. You may view this report before your referring provider. If you have questions, please contact your health care provider. Indication: Trauma. Technique: Right hand, 2nd phalanx, 3 views. Comparison: None. Findings: Bones: Deformity of the 2nd middle phalanx at the palmar aspect likely related to traumatic injury.. Joint spaces: Diffuse degenerative changes.. Soft tissues: Laceration at the palmar aspect of the 2nd distal middle phalanx.. Impression: Deformity of the palmar aspect of the 2nd middle phalanx may be related to traumatic injury from laceration. The fracture fragment is not identified in the soft tissues. Dictated by Amaury Nino MD @ 06/09/2024 6:47:42 PM (Electronically Signed)
[2024-06-09 19:16] VITALS: RESP 16
== END 2024-06-09 19:19 | disposition home or self-care (01) ==
PROVIDERS: Emergency Provider Emergency Medicine
DX: S61.210A Laceration without foreign body of right index finger without damage to nail, initial encounter (principal); W31.2XXA Contact with powered woodworking and forming machines, initial encounter
CPT/HCPCS: 13131; 73140; 99283